=== PATIENT | female | born 1925 | race Caucasian/White ===

== ENCOUNTER 2016-07-10 14:14 | Emergency (ER) | payer OTHER, MEDICARE ==
[~2016-07-10] VITALS: Ht 165.1 cm; Wt 44.5 kg
[~2016-07-10 14:14] MED LIST: CENTRUM SILVER1 EAC3 PO; VITAMIN D250000 UNIT PO
[2016-07-10 14:50] VITALS: BP 166/84
--- NOTE | 2016-07-10 15:33 | ED UPPER/LOWER EXTREMITY COMPL ---
History of Present Illness General Chief Complaint: Hip Injury Stated Complaint: ?R HIP FRACTURE SENT IN BY DR NORRIS Source: patient, family, old records Exam Limitations: no limitations Vital Signs & Intake/Output Vital Signs & Intake/Output Vital Signs Date Time Temp Pulse Resp B/P Pulse O2 O2 Flow FiO2 Ox Delivery Rate 07/10 1450 98.6 97 18 166/84 94 Room Air Allergies Coded Allergies: NO KNOWN ALLERGIES (04/17/11) Reconcile Medications Ergocalciferol (Vitamin D2) (Vitamin D2) 50,000 UNIT CAPSULE 1 CAP PO Q 2 WEEKS SUPPLEMENT (Reported) Multivit-Min/FA/Lycopen/Lutein (Centrum Silver Tablet) 0.4 MG-300 MCG-250 MCG TABLET 1 TAB PO DAILY SUPPLEMENT (Reported) Triage Note: PT TO TRIAGE WITH HER DAUGHTERS, PT WAS SEEN AT DR NORRIS OFFICE FOR R HIP PAIN SINCE SUNDAY , PT ABLE TO AMBULATE AND DENIES INJURY . ABLE TO AMBULATE Triage Nurses Notes Reviewed? yes Onset: Abrupt Duration: day(s): (3), constant Timing: recent history Severity: mild, moderate Severity Numbers: 4 Pain/Injury Location: Right: Hip. Method of Injury: unknown No Modifying Factors: none Associated Symptoms: none HPI: 89-year-old female with history of dementia high blood pressure presents with her daughter for evaluation after she was seen by her primary care physician today and sent to ER for further workup. The patient has had right hip pain for the past 3 days. Her daughter whom she lives with denies any known specific injury or trauma prior to the episode beginning however has noticed that the symptoms seem to be worse after getting out of the tub. The patient has a history of chronic bilateral knee pain arthritis for which she recently finished treatment with a chiropractor with noted improvement in her pain. The patient denies any back pain urinary symptoms numbness or tingling. No chest pain no shortness of breath. There is been no change in her mental status per family. The patient denies any left hip pain The patient's daughter does state that she had fallen on June 17 while outside smoking. She had denied any pain to her hips at that time . Her daughter states that the patient has been cleaning the house and refusing any pain medication at home. She does not use a walker or cane at baseline as she refuses. The patient's daughter states she has been ambulatory with steady gait that is normal for her since complaining of the symptoms. (LANDON BARNES) Past History Travel History Traveled to [place] past 21 day No Medical History Any Pertinent Medical History? see below for history Neurological: dementia EENT: glaucoma, macular degeneration Cardiovascular: NONE Respiratory: lung ca Gastrointestinal: NONE Hepatic: NONE Renal: renal ca Musculoskeletal: osteoarthritis Endocrine: PARATHYROID PROBLEM Blood Disorders: NONE Cancer(s): NONE PER DIEM PHYSICAL THERAPIST/Reproductive: NONE History of CDIFF: No Surgical History Surgical History: lung laser kife resection, neprhectomy Psychosocial History Who do you live with Daughter Services at Home NONE What is your primary language Macedonian Tobacco Use: Never used ETOH Use: denies use Illicit Drug Use: denies illicit drug use Family History Hx Contributory? No (LANDON BARNES) Review of Systems Review of Systems Constitutional: Reports: no symptoms. All Other Systems: Reviewed and Negative Comments Review of systems: See HPI, All other systems negative. Constitutional, no chills no fever, no malaise no weight loss HEENT: no sore throat no congestion, no ear pain Cardiovascular: No chest pain , no palpitation Skin, no jaundice no rashes, no change in skin Respiratory: No dyspnea no cough no sputum no hemoptysis GI: No nausea no vomiting, no diarrhea, no bloating/constipation : No dysuria No hematuria, no frequency Muscle skeletal: joint pain, no joint swelling, no back pain, no neck pain, Neurologic: no headache Psych: No stress no anxiety no depression,. Heme/endocrine: No bruising no bleeding no polyuria Immunology: No lymphadenopathy (LANDON BARNES) Physical Exam Physical Exam General Appearance: well developed/nourished, no apparent distress, awake Comments: Well-developed well-nourished person in no acute distress HEENT: Normal EENT exam; PERRL, EOMI, no nystagmus. HEAD is atraumatic. moist mucous membranes. Neck: Supple, no lymphadenopathy, normal range of motion without pain or tenderness Back: Nontender, no CVA tenderness. Full range of motion Cardiovascular: Regular rate and rhythms no murmurs rubs or gallops, normal JVP Respiratory: Chest nontender.There were no bony deformities, no asymmetry. No respiratory distress. Patient speaking in full complete sentences. Breath sounds clear to auscultation bilaterally: NO W/R/R Abdomen: Soft, nontender nondistended, no appreciable organomegaly. Normal bowel sounds. No rebound/guarding, No appreciable enlargement of the abdominal aorta, No ascites. Upper Extremity: No edema, full range of motion of extremities, normal and equal pulses bilaterally, 5 out of 5 strength noted to bilateral upper extremities Hip/Pelvis: Atraumatic/Stable. FROM. No ecchymosis no signs of trauma nontender No pain with pelvic compression Knee: Atraumatic/stable. FROM. No joint swelling, no effusion. No laxity. Negative cisco/anterior drawer test. No pain with ROM Leg: Atraumatic. Nontender. No edema, 5 out of 5 strength in the lower extremity, normal dorsiflexion of great toe bilaterally, gross sensation is intact Ankle/Foot: Atraumatic/stable. Skin intact. FROM. No swelling, no effusion. No laxity on exam Pulses: Normal/equal DP/PT pulses bilaterally. Brisk cap refill Neuro: Alert oriented x3, motor sensory normal,There were no obvious focal neurologic abnormalities. Skin: No appreciable rash on exposed skin, skin is warm and dry. Psych: Mood and affect is normal, memory and judgment is normal. (TOMER HUANG,LANDON) Progress Differential Diagnosis: cellulitis, compartment syndrome, contusion, dislocation , DVT, fracture, sprain, tendon injury Plan of Care: Orders Procedure Date/time Status Add-on Test (ER Only) 07/10 1754 Active CULTURE,URINE 07/10 172 Active URINALYSIS 07/10 1716 Complete Laboratory Tests 07/10/16 1722: Urine Color YEL, Urine Clarity CLEAR, Urine pH 6.5, Ur Specific Grawn 1.020, Urine Protein 30 H, Urine Ketones NEG, Urine Nitrite NEG, Urine Bilirubin NEG, Urine Urobilinogen 0.2, Ur Leukocyte Esterase TRACE H, Ur Microscopic SEDIMENT EXAMINED, Urine RBC 1-3, Urine WBC 15-25 H, Ur Epithelial Cells MOD H, Urine Hemoglobin NEG, Urine Glucose NEG Microbiology 07/10 172 URINE ROUT: Urine Culture - RECD Patient is declining anything for pain offered CAT scan ordered patient's daughter is in the room and agrees with plan at this time. CASE D/W DR DEL RIO 07/10/2016 5:16:48 PM discussed with the patient and her daughter her CAT scan results she is ambulatory to the bathroom with myself with steady gait D/W THE PT AND HER FAMILY HER UA RESULTS, PT DENIES URIANRY FREQ, URGENCY, DYSURIA. CULTURES SENT- ADVSIED CLOSE F/U WITH LYUDMILA NORRIS WEL ORTHO. PT IS AMB WITH STEADY GAIT HERE, DENIES PAIN, DECLINING PAIN MEDS AGAIN. PT LIVES WITH HER DAUGHTER. THEY FEEL COMFORTABLE WITH PLAN CLEARED FOR DC (LANDON BARNES) Diagnostic Imaging: Viewed by Me: CT Scan. Discussed w/RAD: CT Scan. Radiology Impression: PATIENT: KERMIT BRUCE PRESENT AGE: 89 PATIENT ACCOUNT NO: [id number] : [birth year] LOCATION: [facility] ORDERING PHYSICIAN: LANDON HUANG SERVICE DATE: 07/10/162346 EXAM TYPE: CAT - CT PELVIS WO IV CONTRAST EXAMINATION: CT PELVIS WITHOUT CONTRAST CLINICAL INFORMATION: Right-sided hip pain, evaluate for fracture. COMPARISON: 2008. TECHNIQUE: Helical scanning was performed with submillimeter collimation through the pelvis. Sagittal and coronal multiplanar 2-D reconstructions were obtained. DLP: 945 mGy-cm. FINDINGS: PELVIS: No suspicious appearing masses are seen. Hepatic cysts and colonic diverticulosis is again identified without evidence of an acute process. There is extensive atherosclerotic aortic and iliac arterial calcification. OSSEOUS STRUCTURES: There is diffuse osteopenia with fairly advanced degenerative changes identified in the lower lumbar spine, lumbosacral junction, and bilateral hips, right-sided greater than left. No aggressive appearing focal destructive or sclerotic osseous lesions are seen. IMPRESSION: Osteopenia and degenerative changes, no evidence of an acute fracture. No evidence of an acute intra-abdominal process. DICTATED BY: MARK KWOK MD DATE/TIME DICTATED:07/10/161655 SHAREPOINT ADMIN:LESLYE DATE/ TIME TRANSCRIBED:07/10/161655 CONFIDENTIAL, DO NOT COPY WITHOUT APPROPRIATE AUTHORIZATION. <Electronically signed in Other Vendor System> SIGNED BY: MARK KWOK MD 07/10/161707 (LANDON BARNES) Departure Departure Time of Disposition: 1753 Disposition: HOME OR SELF CARE Condition: Stable Clinical Impression Primary Impression: Hip strain Referrals: MELODY NORRIS MD (PCP/Family) OSMAR VANCE MD Additional Instructions: Follow-up with her primary care physician as well as orthopedist Dr. vance if symptoms persist. Tylenol every 6 hours as needed for pain. Rest, ice 20 minutes as needed. Return anytime sooner with any concerns. Departure Forms: Customer Survey General Discharge Information (TOMER HUANG,LANDON) PA/ELECTROMEDICAL EQUIPMENT REPAIRER Co-Sign Statement Statement: ED Attending supervision documentation- [X] I saw and evaluated the patient. I have also reviewed all the pertinent lab results and diagnostic results. I agree with the findings and the plan of care as documented in the PA's/ELECTROMEDICAL EQUIPMENT REPAIRER's documentation. [] I have reviewed the ED Record and agree with the PA's/ELECTROMEDICAL EQUIPMENT REPAIRER's documentation. [] Additions or exceptions (if any) to the PAs/ELECTROMEDICAL EQUIPMENT REPAIRER's note and plan are summarized below: [] (OSMANI DEL RIO DO)
--- NOTE | 2016-07-10 17:08 | CT SCAN REPORT ---
EXAMINATION: CT PELVIS WITHOUT CONTRAST CLINICAL INFORMATION: Right-sided hip pain, evaluate for fracture. COMPARISON: 01/04/2009. TECHNIQUE: Helical scanning was performed with submillimeter collimation through the pelvis. Sagittal and coronal multiplanar 2-D reconstructions were obtained. DLP: 945 mGy-cm. FINDINGS: PELVIS: No suspicious appearing masses are seen. Hepatic cysts and colonic diverticulosis is again identified without evidence of an acute process. There is extensive atherosclerotic aortic and iliac arterial calcification. OSSEOUS STRUCTURES: There is diffuse osteopenia with fairly advanced degenerative changes identified in the lower lumbar spine, lumbosacral junction, and bilateral hips, right-sided greater than left. No aggressive appearing focal destructive or sclerotic osseous lesions are seen. IMPRESSION: Osteopenia and degenerative changes, no evidence of an acute fracture. No evidence of an acute intra-abdominal process.
== END 2016-07-10 18:01 ==
LOC: ERH 14:14
DX: S39.012A Strain of muscle, fascia and tendon of lower back, initial encounter (principal); M25.551 Pain in right hip; F03.90 Unspecified dementia, unspecified severity, without behavioral disturbance, psychotic disturbance, mood disturbance, and anxiety; X58.XXXA Exposure to other specified factors, initial encounter; Z85.53 Personal history of malignant neoplasm of renal pelvis; I10 Essential (primary) hypertension; Z72.0 Tobacco use; Z85.118 Personal history of other malignant neoplasm of bronchus and lung
CPT/HCPCS: 81001; 87086; 87147